=== PATIENT | female | born 1985 | race Caucasian/White ===

== ENCOUNTER 2016-12-11 21:26 | Emergency (ER) | payer SELFPAY ==
[2016-12-12 00:29] VITALS: BP 101/60
== END 2016-12-12 00:29 | disposition home or self-care (01) ==
LOC: ED 21:26
DX: B34.9 Viral infection, unspecified (principal); J20.9 Acute bronchitis, unspecified; J02.9 Acute pharyngitis, unspecified
CPT/HCPCS: J1885; J2405; J7030; J7620

== ENCOUNTER 2017-01-08 09:52 | Inpatient (IN) | payer MEDICAID ==
[~2017-01-08] VITALS: Ht 157.5 cm; Wt 87.7 kg
[2017-01-08 11:52] LABS: BASOPHIL % 0.4 % (0-2); PLATELET COUNT 280 x10^3mcL (130-400); RED CELL DISTRIBUTION WIDTH 14.5 % (11.5-14.5)
[2017-01-08 11:59] LABS: CALCIUM 9.7 mg/dL (8.5-10.1); CARBON DIOXIDE 28.3 mmol/L (21-32); CHLORIDE SERUM 105 mmol/L (98-107); CREATININE SERUM 0.7 mg/dL (0.6-1.0); GFR1 > 60 mL/min; GLUCOSE SERUM 102 mg/dL (74-106); POTASSIUM SERUM 4.2 mmol/L (3.5-5.1); SODIUM SERUM 140 mmol/L (136-145)
[2017-01-08 12:00] LABS: microscopic required? NO
[2017-01-08 12:05] LABS: ALBUMIN 3.9 g/dL (3.4-5.0); ALKALINE PHOSPHATASE 76 U/L (46-116); ALT/SGPT 22 U/L (14-59); AST/SGOT 12 U/L (15-37); BILIRUBIN TOTAL 0.3 mg/dL (0.20-1.00); CHOLESTEROL 179 mg/dL (<200); LIPASE 72 IU/L (73-393); TOTAL PROTEIN, SERUM 7.6 g/dL (6.4-8.2); TRIGLYCERIDES 57 mg/dL (<150)
[2017-01-08 12:07] LABS: CHOLESTEROL/HDL RATIO 2.6; HDL CHOLESTEROL 69 mg/dL (40-60)
[2017-01-08 12:11] LABS: UA SPECIFIC GRAVITY <=1.005 (1.005-1.035); urine erythrocyte NEGATIVE (NEGATIVE)
[2017-01-08 12:11] LABS: FREE T4 0.88 ng/dL (0.76-1.46); FREE THYROXINE INDEX 2.4 ug/dL (1.4-4.5); T4(THYROXINE) 7.3 ug/dL (4.7-13.3)
[2017-01-08 14:09] LABS: AMPHETAMINE QUAL UR NONE DETECTED (NEG <=1000)
[2017-01-08 14:18] LABS: PHOSPHOROUS 3.5 mg/dL (2.5-4.9)
[2017-01-08 14:38] VITALS: BP 100/68
[2017-01-08 15:19] VITALS: BP 100/68
[2017-01-08 17:23] VITALS: BP 94/53
[2017-01-08 20:29] VITALS: BP 90/41
[2017-01-09 01:41] VITALS: BP 93/47
[2017-01-09 06:19] VITALS: BP 95/37
[2017-01-09 09:38] VITALS: BP 95/46
[2017-01-09 16:27] VITALS: BP 110/52
[2017-01-09 18:12] VITALS: BP 112/50
[2017-01-09 21:28] VITALS: BP 99/55
[2017-01-10 04:04] VITALS: BP 103/64
[2017-01-10 06:17] LABS: BASOPHIL % 0.4 % (0-2); PLATELET COUNT 226 x10^3mcL (130-400)
[2017-01-10 06:27] LABS: CALCIUM 8.5 mg/dL (8.5-10.1); CARBON DIOXIDE 26.1 mmol/L (21-32); CHLORIDE SERUM 109 mmol/L (98-107); CREATININE SERUM 0.7 mg/dL (0.6-1.0); GFR1 > 60 mL/min; GLUCOSE SERUM 96 mg/dL (74-106); POTASSIUM SERUM 3.9 mmol/L (3.5-5.1); SODIUM SERUM 142 mmol/L (136-145)
[2017-01-10 07:21] LABS: RED CELL DISTRIBUTION WIDTH 14.9 % (11.5-14.5)
[2017-01-10 09:36] VITALS: BP 103/64
[2017-01-10 10:05] VITALS: BP 108/62
[2017-01-10] MEDS ORDERED: LEXAPRO10 MG PO (13:15)
[2017-01-10] MEDS ORDERED: ATIVAN0.5 M1 PO (13:23)
[2017-01-10] MEDS ORDERED: LIPI10 PO (13:24)
[2017-01-10] MEDS ORDERED: AMOXICILLIN250 MG PO (13:28)
== END 2017-01-10 14:40 | disposition home or self-care (01) | DRG 204 ==
LOC: ED 09:52 → DU 13:35
PROVIDERS: Specialist; ADMIT Family Medicine
DX: R55 Syncope and collapse (principal); F32.9 Major depressive disorder, single episode, unspecified; H66.92 Otitis media, unspecified, left ear; E78.5 Hyperlipidemia, unspecified; F41.0 Panic disorder [episodic paroxysmal anxiety]; F17.210 Nicotine dependence, cigarettes, uncomplicated; Z68.35 Body mass index [BMI] 35.0-35.9, adult
CPT/HCPCS: 82962; 83880; 84439; G0480; J0696; J1885; J2270; J7030; J8597; Q0092

== ENCOUNTER 2017-05-22 21:40 | Emergency (ER) | payer SELFPAY ==
[~2017-05-22 21:40] MED LIST: AMOXICILLIN250 MG PO; ATIVAN0.5 M1 PO; LEXAPRO10 MG PO; LIPI10 PO
[2017-05-22 22:38] VITALS: BP 122/71
== END 2017-05-22 22:13 | disposition home or self-care (01) ==
LOC: ED 21:40
DX: B34.9 Viral infection, unspecified (principal); H66.92 Otitis media, unspecified, left ear

== ENCOUNTER → 2017-09-27 | Outpatient (CLI) | payer MEDICAID | END | disposition home or self-care (01) | LOC: RD 15:31 | DX: M25.532 Pain in left wrist (principal) ==